=== PATIENT | female | born 1990 | race Caucasian/White ===

== ENCOUNTER 2020-10-15 10:37 | Emergency (ER) | payer OTHER, SELFPAY ==
[2020-10-15] VITALS (7 sets, daily range): BP systolic 105–121; BP diastolic 59–78; PULSE 52–74; RESP 16–18; TEMP 35.7–36.4; O2SAT 98–100; BMI 23.0
--- NOTE | ~2020-10-15 | CT_ITS ---
EXAMINATION: CT ABDOMEN AND PELVIS WITH CONTRAST CLINICAL INFORMATION: Abdominal pain COMPARISON: None TECHNIQUE: Multidetector volumetric images were obtained from the superior aspect of the liver through the pubic symphysis following administration 85 mL of Omnipaque 350 intravenous contrast. Sagittal and coronal reformatted images were obtained on the technologist's workstation. Oral contrast: No This CT examination was performed using dose optimization techniques as appropriate, variously including the following: *Automated exposure control *Adjustment of mA and/or kV according to patient size (this includes techniques or standardized protocols for targeted exams where dose is matched to indication/reason for exam; i.e. extremities or head) *Use of iterative reconstruction technique DLP: 435 mGy-cm FINDINGS: LUNG BASES: The visualized lung bases are unremarkable. No pleural or pericardial effusion. LIVER, GALLBLADDER, AND BILIARY TREE: There is mild hepatomegaly present with vertical span of 20 cm. No focal hepatic lesion or biliary ductal dilatation is present. The gallbladder is unremarkable with no evidence of radiopaque gallstones, gallbladder wall thickening, or obvious pericholecystic inflammatory changes. PANCREAS: Unremarkable. SPLEEN: Unremarkable. ADRENAL GLANDS: Unremarkable. KIDNEYS AND URETERS: The kidneys are normal in size, shape, and attenuation. No hydronephrosis, hydroureter, or calculi seen. No perinephric stranding. BLADDER: Unremarkable. GASTROINTESTINAL TRACT: No dilated loops of large or small bowel. No free air is identified. There is a small amount of free fluid seen within the pelvis. There appears to be some wall thickening with mild pericolonic inflammatory change about a section of the descending colon. No abscess collection is appreciated. The cecum lies low in the pelvis with the appendix, however the appendix appears unremarkable. ABDOMINAL WALL: No significant hernia is appreciated. LYMPH NODES: Normal. VASCULAR: Unremarkable. PELVIC VISCERA: There is some free fluid present. No abnormal mass is appreciated. No gas within the free fluid is noted. Multiple ovarian follicles are seen bilaterally. OSSEOUS STRUCTURES: Unremarkable. CT/CT abdomen pelvis w con IMPRESSION: Findings consistent with colitis of the descending colon. No abscess identified. Small amount of free fluid is seen.
--- NOTE | 2020-10-15 11:23 | ED.GIBLEED ---
HPI - GI Bleed General Chief complaint: GI Bleed Stated complaint: RECTAL BLEEDING Time Seen by Provider: 10/15/20 11:19 History of Present Illness HPI Narrative: 29-year-old female presents today with having bright red blood per rectum. Along with having diffuse abdominal pain. No history of abdominal surgery in the past. No history of alcohol use. No history of NSAID use. Patient denies any change in her diet. Definitely was rectal. There is no vaginal bleeding. Her last menstrual periods about a week ago. Timing and duration was normal. There is no pain on urination. Patient is from home. Slight dizziness diffuse abdominal cramping. No travel history. Patient is from home. Related Data Previous Rx's Medication Instructions Recorded ciprofloxacin HCl 500 mg tablet 500 mg PO BID 5 Days #10 tab 10/15/20 (Cipro) ondansetron 4 mg disintegrating 4 mg PO TID PRN 5 Days #10 tab 10/15/20 tablet Allergies Allergy/AdvReac Type Severity Reaction Status Date / Time No Known Allergies Allergy Verified 10/15/20 10:51 Review of Systems Review of Systems: Constitutional: No Weight loss, No Fever, No Chills, No Night Sweats, No Fatigue, No Malaise ENT/Mouth: No Hearing loss, No Ear Pain, No Nasal Congestion, No Sinus Pain, No Hoarseness, No sore throat, No Rhinorrhea, No Swallowing Difficulty Eyes: No Eye Pain, No Swelling, No Redness, No Foreign Body, No Discharge, No Vision Changes Cardiovascular: No Chest Pain, No SOB, No Dyspnea on Exertion, No Orthopnea, No Edema, No Palpitations Respiratory: No Cough, No Sputum, No Wheezing, No Smoke Exposure, No Dyspnea Gastrointestinal: Positive bloody stool positive nausea positive diffuse abdominal cramping Genitourinary: no irregular bleeding, No Dysuria, No Urinary Frequency, No Hematuria, No Urinary Incontinence, No Urgency, No Flank Pain, No Urinary Flow Changes, No Hesitancy Musculoskeletal: No joint pain, No Myalgias, No Joint Swelling Skin: No Skin Lesions, No rash Neuro: No Weakness, No Numbness, No Paresthesias, No Loss of Consciousness, No Dizziness, No Headache Psych: No Anxiety/Panic, No Depression, No SI/HI/AH/VH, No Social Issues, Heme/Lymph: No Bruising, No Bleeding,No Lymphadenopathy Endocrine: No Polyuria, No Polydipsia, No Temperature Intolerance [facility] Past Medical History Attestation statement: The following information was validated with the patient. Medical History (Updated 10/15/20 @ 15:24 by Oriana Ku MD) No active medical problems Social History Social History Advance Directives: Yes Advance Directives Information Provided: Yes Advance Directives on File: No Physical Exam Vital Signs: Vital Signs: Last Vital Signs Temp 96.2 F L 10/15/20 11:46 Pulse 52 10/15/20 14:21 Resp 16 10/15/20 14:21 BP 116/76 10/15/20 14:21 Pulse Ox 98 10/15/20 14:21 Body Mass Index 23.0 Appearance: Alert. Oriented X3. No acute distress. Eyes: Pupils equal, round and reactive to light. ENT: Pharynx normal. Neck: Normal inspection. Neck supple. No lymph nodes noted. No crepitus CVS: Normal heart rate and rhythm. Pulses normal. Normal S1 and S2 Respiratory: No respiratory distress. Breath sounds normal. No Wheezing. No rales Abdomen: Soft and nontender. No rigidity. No distention. good BS x4 Rectal exam done with tech Shirin present. Just mucus was noted. No blood noted. No external hemorrhoids noted. Skin: Skin warm and dry. Normal skin color. Normal skin turgor. Extremities: No lower extremity edema. Neurovascular intact to all extremities. No Lacerations. No Rash Neuro: Oriented X 3. No motor deficit. No sensory deficit. Moving all extermities. No slurred speech MDM - GI Bleed [facility] Narrative Medical decision making narrative: Well-appearing abdominal exam is soft nontender. Complaining of bright red blood per rectum. Will check patient's hemoglobin will get CT scan of the abdomen for colitis. Patient denies any history of alcohol use denies any history of NSAID use no history of travel. No significant past medical history except for anxiety. Patient's hemoglobin is 12. CT consistent with colitis. Hemoccult was actually negative. Patient well appearing no distress. Will discharge patient home. Close follow-up on an outpatient basis. Differential Diagnosis Differential diagnosis: Likely hemorrhoids, Lower gastrointestinal hemorrhage, hematochezia, melena and anal fissure Medical Records Attestation: I reviewed the patient's medical records. Lab Data Attestation: I reviewed the patient's lab results. Result diagrams: 10/15/20 11:32 10/15/20 11:32 Labs: Lab Results 10/15/20 10/15/20 10/15/20 Range/Units 11:32 11:32 12:56 WBC 14.9 H (4.8-10.8) X10*3/uL RBC 4.17 L (4.20-5.50) X10*6/uL Hgb 12.9 (12.0-16.0) g/dl Hct 38.8 (37-47) % MCV 93.0 (80-98) fL MCH 30.9 (27.0-33.0) pg MCHC 33.2 (31.0-35.0) g/dl RDW 12.9 (11.0-16.0) % Plt Count 353 (160-400) X10*3/uL MPV 9.8 (9.4-12.3) fL Immature Gran % (Auto) 0.3 (0.0-0.4) % Neut % (Auto) 76.2 H (45-73) % Lymph % (Auto) 16.1 L (20-40) % Jerome % (Auto) 5.1 (2-11) % Eos % (Auto) 1.9 (0-4) % Baso % (Auto) 0.4 (0-2) % Lymph # (Auto) 2.4 (1.2-4.9) X10*3/uL Jerome # (Auto) 0.8 (0.1-1.2) X10*3/uL Eos # (Auto) 0.3 (0.0-0.4) X10*3/uL Baso # (Auto) 0.1 (0.0-0.2) X10*3/uL Abs Immat Gran (auto) 0.05 H (0.00-0.03) X10*3/uL Absolute Neuts (auto) 11.3 H (2.0-8.3) X10*3/uL Absolute Nucleated RBC 0.000 (0.0-0.012) X10*3/uL Nucleated RBC % (auto) 0.0 (0.0-0.2) /100WBC Sodium 139 (135-145) mmol/L Potassium 4.3 (3.3-5.1) mmol/L Chloride 105 (96-108) mmol/L Carbon Dioxide 26 (22-29) mmol/L Anion Gap 12 (12-20) BUN 11 (9-16) mg/dL Creatinine 0.75 (0.5-1.4) mg/dL Estim Creat Clear Calc 92.3 Estimated GFR > 60 Random Glucose 96 (60-115) mg/dL Calcium 9.4 (8.4-10.2) mg/dL Total Bilirubin 0.3 (0.0-1.0) mg/dL Direct Bilirubin 0.2 (0.0-0.5) mg/dL AST 21 (5-31) U/L ALT 13 (0-31) U/L Alkaline Phosphatase 35 L (39-117) U/L Total Protein 7.0 (6.5-8.0) g/dL Albumin 4.3 (3.5-5.0) g/dL Lipase 19 (8-78) U/L Urine Color YELLOW Urine Appearance CLEAR Urine pH 7.0 (5.0-8.0) Ur Specific [place] 1.010 (1.005-1.025) Urine Protein NEG (NEG-TRACE) MG/DL Urine Glucose (UA) NEG (NEG) MG/DL Urine Ketones NEG (NEG) MG/DL Urine Blood NEG (NEG) Urine Nitrite NEG (NEG) Ur Leukocyte Esterase NEG (NEG) Urine RBC 0 (0) /HPF Urine WBC 0 (0-4) /HPF Ur Squamous Epith Cells 2+ /LPF Amorphous Sediment 1+ /LPF Urine Bacteria Not Reportable Urine Mucus 1+ /LPF Urine Test (NEGATIVE) Stool Occult Blood (NEGATIVE) 10/15/20 10/15/20 Range/Units 12:56 12:56 WBC (4.8-10.8) X10*3/uL RBC (4.20-5.50) X10*6/uL Hgb (12.0-16.0) g/dl Hct (37-47) % MCV (80-98) fL MCH (27.0-33.0) pg MCHC (31.0-35.0) g/dl RDW (11.0-16.0) % Plt Count (160-400) X10*3/uL MPV (9.4-12.3) fL Immature Gran % (Auto) (0.0-0.4) % Neut % (Auto) (45-73) % Lymph % (Auto) (20-40) % Jerome % (Auto) (2-11) % Eos % (Auto) (0-4) % Baso % (Auto) (0-2) % Lymph # (Auto) (1.2-4.9) X10*3/uL Jerome # (Auto) (0.1-1.2) X10*3/uL Eos # (Auto) (0.0-0.4) X10*3/uL Baso # (Auto) (0.0-0.2) X10*3/uL Abs Immat Gran (auto) (0.00-0.03) X10*3/uL Absolute Neuts (auto) (2.0-8.3) X10*3/uL Absolute Nucleated RBC (0.0-0.012) X10*3/uL Nucleated RBC % (auto) (0.0-0.2) /100WBC Sodium (135-145) mmol/L Potassium (3.3-5.1) mmol/L Chloride (96-108) mmol/L Carbon Dioxide (22-29) mmol/L Anion Gap (12-20) BUN (9-16) mg/dL Creatinine (0.5-1.4) mg/dL Estim Creat Clear Calc Estimated GFR Random Glucose (60-115) mg/dL Calcium (8.4-10.2) mg/dL Total Bilirubin (0.0-1.0) mg/dL Direct Bilirubin (0.0-0.5) mg/dL AST (5-31) U/L ALT (0-31) U/L Alkaline Phosphatase (39-117) U/L Total Protein (6.5-8.0) g/dL Albumin (3.5-5.0) g/dL Lipase (8-78) U/L Urine Color Urine Appearance Urine pH (5.0-8.0) Ur Specific [place] (1.005-1.025) Urine Protein (NEG-TRACE) MG/DL Urine Glucose (UA) (NEG) MG/DL Urine Ketones (NEG) MG/DL Urine Blood (NEG) Urine Nitrite (NEG) Ur Leukocyte Esterase (NEG) Urine RBC (0) /HPF Urine WBC (0-4) /HPF Ur Squamous Epith Cells /LPF Amorphous Sediment /LPF Urine Bacteria Urine Mucus /LPF Urine Test NEGATIVE (NEGATIVE) Stool Occult Blood NEGATIVE (NEGATIVE) Discharge Plan Discharge Clinical Impression: Colitis Patient Disposition: Home, Self-Care Instructions: Colitis (ED) Prescriptions: New ciprofloxacin HCl [Cipro] 500 mg tablet 500 mg PO BID 5 Days Qty: 10 RF: 0 ondansetron 4 mg tablet,disintegrating 4 mg PO TID PRN (Reason: nausea and vomiting) 5 Days Qty: 10 RF: 0 Referrals: Physician,None [Primary Care Provider] - 2 days (Lots of clear liquids. Close follow-up with her doctor on an outpatient basis.)
[2020-10-15] MEDS: 0.9 % Sodium Chloride 1,000 ML 999 ML IV (11:33)
[2020-10-15 11:40] LABS: MANUAL DIFF FLAG NO
[2020-10-15 11:41] LABS: Basophils Absolute Auto 0.1 X10*3/uL (0.0-0.2); Basophils Percent Auto 0.4 % (0-2); Eosinophils Absolute Auto 0.3 X10*3/uL (0.0-0.4); Eosinophils Percent Auto 1.9 % (0-4); Hematocrit 38.8 % (37-47); Hemoglobin 12.9 g/dl (12.0-16.0); Imm Gran Abs Auto 0.05 X10*3/uL (0.00-0.03); Imm Gran Pct Auto 0.3 % (0.0-0.4); Lymphocytes Absolute Auto 2.4 X10*3/uL (1.2-4.9); Lymphocytes Percent Auto 16.1 % (20-40); Mean Corpuscular HGB Conc 33.2 g/dl (31.0-35.0); Mean Corpuscular Hemoglobin 30.9 pg (27.0-33.0); Mean Platelet Volume 9.8 fL (9.4-12.3); Monocytes Absolute Auto 0.8 X10*3/uL (0.1-1.2); Monocytes Percent Auto 5.1 % (2-11); Neutrophils Absolute Auto 11.3 X10*3/uL (2.0-8.3); Neutrophils Percent Auto 76.2 % (45-73); Platelet Count 353 X10*3/uL (160-400); Red Blood Count 4.17 X10*6/uL (4.20-5.50); Red Cell Distribution Width 12.9 % (11.0-16.0); White Blood Count 14.9 X10*3/uL (4.8-10.8)
[2020-10-15 12:09] LABS: Alanine Aminotransferase 13 U/L (0-31); Albumin Level 4.3 g/dL (3.5-5.0); Alkaline Phosphatase 35 U/L (39-117); Anion Gap 12 (12-20); Aspartate Amino Transferase 21 U/L (5-31); Bilirubin Direct 0.2 mg/dL (0.0-0.5); Bilirubin Total 0.3 mg/dL (0.0-1.0); Blood Urea Nitrogen 11 mg/dL (9-16); Calcium 9.4 mg/dL (8.4-10.2); Carbon Dioxide 26 mmol/L (22-29); Chloride 105 mmol/L (96-108); Creatinine Clr Calc Pharmacy 92.3; Estimated Glomerular Filt Rate > 60; Glucose Random 96 mg/dL (60-115); Lipase 19 U/L (8-78); Potassium 4.3 mmol/L (3.3-5.1); Sodium 139 mmol/L (135-145)
[2020-10-15 13:24] LABS: OBS Int Ctl Valid YES; OBS1 NEGATIVE (NEGATIVE)
[2020-10-15 13:29] LABS: Glucose Urine UA NEG (NEG); Leukocyte Esterase Urine NEG (NEG); Nitrite Urine NEG (NEG); Urine Blood NEG (NEG); Urine Ketones NEG (NEG); Urine Protein NEG (NEG-TRACE)
[2020-10-15 13:38] LABS: Appearance Urine CLEAR; Color Urine YELLOW
[2020-10-15 13:39] LABS: WBC Urine 0 /HPF (0-4)
[2020-10-15 13:40] LABS: Amorphous Sediment Urine 1+ /LPF; Mucus Urine 1+ /LPF; RBC Urine 0 /HPF (0); Squamous Epithelial Cell Urine 2+ /LPF
[2020-10-15 13:41] LABS: UPreg QC Valid YES; Urine Pregnancy NEGATIVE (NEGATIVE)
[2020-10-15] MEDS: iohexoL 350 MG/ML 100 ML INFUS..BTL IV (14:28)
== END 2020-10-15 15:51 | disposition home or self-care (01) ==
PROVIDERS: Emergency Provider Emergency Medicine Emergency Medical Services
DX: K52.9 Noninfective gastroenteritis and colitis, unspecified (principal); R11.0 Nausea
CPT/HCPCS: 36415; 74177; 80048; 80076; 81001; 81025; 82272; 83690; 85025; 96360; 99284; Q9967

== ENCOUNTER 2024-05-21 14:53 | Outpatient (AMB) | payer BC, SELFPAY ==
--- NOTE | 2024-05-21 15:00 | MHC.PC.OV ---
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 ?? Prior PCP:? [facility] primary Last office visit/CPE:? . 1 yr Acute issue(s):? 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 Was on Methylphenidate and Concerta dir difficulty Concentrating - Notes Dx of ADHD ?? PMHx:? Anxiety & Depression, Dif concentrating. SurgHx:? Osteoma removal FHx:? Mom: Dad: Anxiety Sister: MS, Bipolar. Brother: ADHD. Dads Side: Skin CA mGM: side [place] SocHx:? Nonsmoker. EtOH 1-2 dr a week. MJ daily or qod. No other drugs. 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 1. Little interest or pleasure in doing things: several days 2. Feeling down, depressed, or hopeless: several days 3. Trouble falling or staying asleep, or sleeping too much: several days 4. Feeling tired or having little energy: nearly every day 5. Poor appetite or overeating: nearly every day 6. Feeling bad about yourself - or that you are a failure or have let yourself or your family down: several days 7. Trouble concentrating on things, such as reading the newspaper or watching television: nearly every day 8. Moving or speaking so slowly that other people could have noticed. Or the opposite - being so fidgety or restless that you have been moving around a lot more than usual: several days 9. Thoughts that you would be better off or of hurting yourself in some way: not at all Total score: 14 Depression Screening Interpretation: Positive Depression Screening Follow-up: In treatment and Community Mental Health Worker F/U Depression Screening Done: Yes 34802 - PHQ-9 Billing: Yes Source: Developed by Drs. Burak Atkins, Brea Mix, Shyam Rios and colleagues, with an educational angelique from [employer]. Thrive Questionnaire Date Thrive assessed: 05/21/24 I am a: Patient What is your living situation today?: I have a steady place to live Within the past 12 months, did the food you bought not last and you didn't have the money to get more?: I choose not to answer this question Within the past 12 months, did you worry whether your food would run out before you got money to buy more?: Never true Do you have trouble paying for medicines?: No Do you have trouble getting transportation to medical appointments?: No Do you have trouble paying your heating and electricity bill?: No Do you have trouble taking care of your child, family member or friend?: No Do you have trouble with day-to-day activities such as bathing, preparing meals, shopping, managing finances, etc.?: No Are you currently unemployed and looking for a job?: No Are you interested in more education?: Yes Please select the resources that you would like help with: None Currently or been in a relationship where the following occur: No concerns reported THRIVE Score: 0 AUDIT C Alcohol Use Questionnaire (AUDIT-C) 1. How often do you have a drink containing alcohol?: Monthly or less 2. How many drinks containing alcohol do you have on a typical day when you are drinking?: 1 or 2 3. How often do you have six or more drinks on one occasion?: Never Total Score: 1 Score Reviewed/Action Taken: Yes HELGA-7 AMB Questionnaire HELGA-7 Date HELGA - 7 assessed: 05/21/24 Feeling nervous, anxious, or on edge: 3 = Nearly every day Not being able to stop or control worryin = Nearly every day Worrying too much about different things: 3 = Nearly every day Trouble relaxin = Nearly every day Being so restless that it is hard to sit still: 3 = Nearly every day Becoming easily annoyed or irritable: 3 = Nearly every day Feeling afraid as if something awful might happen: 3 = Nearly every day Total HELGA-7 score (0-4 normal; 5-9 mild; 10-14 moderate; 15-21 severe): 21 Source: Developed by Drs. Burak Atkins, Brea Mix, Shyam Rios and colleagues, with an educational angelique from [employer]. HELGA-7 Assessment Billing HELGA-7 Assessment Tool: HELGA-7 Assessment 82845 Review of Systems Const Denies chills, Denies fatigue, Denies fever(s), Denies headache(s) and Denies weakness Eyes Denies change in vision ENT Denies dizziness and Denies headache(s) Card Denies dyspnea Resp Denies cough, Denies dyspnea, Denies wheezing and Denies other (shortness of breath) GI Denies abdominal pain, Denies melena, Denies hematochezia, Denies change in bowel habits, Denies dyspepsia and Denies nausea Denies hematuria and Denies dysuria Musc Denies numbness and Denies tingling Skin/Breast Denies rash, Denies unusual bruising and Denies wounds Neuro Denies dizziness, Denies headache(s), Denies numbness, Denies Sensory deficit (Neuro), Denies tingling and Denies weakness Psych Reports anxiety and Reports depression Endo Denies fatigue Aris/Lymph Denies easy bleeding and Denies easy bruising Aller/Immun Denies wheezing Physical exam (Primary Care) Vital Signs: Last Vital Signs Temp 97.9 F 05/21/24 15:14 Pulse 73 05/21/24 15:14 Resp 12 05/21/24 15:14 BP 104/70 05/21/24 15:14 Pulse Ox 100 05/21/24 15:14 BMI result Body Mass Index 25.2 Tobacco/Smoking Status: Tobacco use Status Tobacco use date assessed 05/21/24 05/21/24 15:14 Patient Tobacco Use Status Former Tobacco user 05/21/24 15:14 e-Cigarette/Vaping Use Never Used 05/21/24 15:14 PHQ-9: PHQ-9 Score PHQ-9: Total score 14 05/21/24 15:43 Depression Screening Interpretation: Positive Depression Screening Follow-up: In treatment and Community Mental Health Worker F/U Thrive Assessment: Date of Thrive Assessment Date Thrive assessed 05/21/24 05/21/24 15:01 Currently or been in a relationship where the following occur: No concerns reported Const General: well developed; No acute distress Nutritional Appearance: well nourished Orientation/consciousness: patient oriented x3 HENMT Head: Yes normocephalic and Yes atraumatic Ears: hearing grossly normal bilaterally and TM's normal bilaterally General nose exam: Normal external nose present and Normal nares present Eyes General: appearance normal, both eyes and all related structures Pupils: Equal, round and reactive pupils present EOM: EOMs intact bilaterally Chest Chest palpation & inspection: normal inspection of the chest Resp Effort & Inspection: normal respiratory effort Auscultation: clear to auscultation bilaterally Cardio Rate: regular rate Rhythm: regular rhythm Heart sounds: S1 normal heart sound present, S2 normal heart sound present, no gallops, no murmurs and no rubs Neuro General: patient oriented x3 and gait normal Cranial nerves: Yes Equal, round and reactive pupils present Cognition (Neuro): normal cognition Gait exam (Neuro): Normal gait present Motor exam (neuro): 5/5 motor strength present throughout Sensory Exam: No Sensory deficit (Neuro) Deep tendon reflexes (DTR's): Right patellar reflex intensity grade: 2+ and Left patellar reflex intensity grade: 2+ Extrem General: Yes normal to inspection and No edema Psych Appearance: grossly normal Affect: normal affect Attitude: cooperative Thought process: Normal thought process present Coding Level of Care Code New Pt Level 4 (66111) Diagnoses Depression with anxiety F41.8 Neoplasm of uncertain behavior of skin D48.5 Vision changes H53.9 ADHD F90.9 Laboratory exam ordered as part of routine general medical examination Z00.00 Family history of MS (multiple sclerosis) Z82.0 Additional Codes HELGA-7 Assessment Billing - HELGA-7 Assessment Tool: HELGA-7 Assessment 65940 ([id number]) PHQ-9 - 42152 - PHQ-9 Billing: Yes ([id number]) Assessment & Plan Assessment & Plan (1) Depression with anxiety: Code(s): F41.8 - Other specified anxiety disorders Category: Medical Plan: Currently?on?escitalopram?5?mg?tablets.??She?is?increasing?this?to?2?tablets?daily She?will?let?me?know?if?she?needs?a?refill Patient?would?like?a?referral?to?a therapist. 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 (4) ADHD: Code(s): F90.9 - Attention-deficit hyperactivity disorder, unspecified type Category: Medical Plan: Her?prior?PCPs?records?confirm?diagnosis?of?ADHD She?has?tried?Concerta/methylphenidate and?Ritalin?in?the?past. Will?try?Adderall?as?she?has?not?found?the?above?medications work?well. Medication?agreement?form?is?filled?out. (5) Laboratory exam ordered as part of routine general medical examination: Code(s): Z00.00 - Encounter for general adult medical examination without abnormal findings Category: Medical Plan: Check?labs (6) Family history of MS (multiple sclerosis): Code(s): Z82.0 - Family history of epilepsy and other diseases of the nervous system Category: Medical Plan: As?above?patient?has?a?sister?with?MS. Patient?notes?some?vision?changes?and?follow-up?with?mirror finishing machine operator. Her?neurologic exam?today?is?normal Orders: Orders Complete Blood Count Auto Diff Today Z00.00 - Encounter for general adult medical examination without abnormal findings Comprehensive [place]. Panel Fast Today Z00.00 - Encounter for general adult medical examination without abnormal findings Microalbumin, Random (w Creat) Today I10 - Essential (primary) hypertension TSH reflex Free T4 Today Z00.00 - Encounter for general adult medical examination without abnormal findings UA and rflx microscopic Today Z00.00 - Encounter for general adult medical examination without abnormal findings HIV Ab/Ag Today Z11.3 - Encounter for screening for infections with a predominantly sexual mode of transmission Hepatitis B,C Profile Today Z11.3 - Encounter for screening for infections with a predominantly sexual mode of transmission Syphilis Screen Today Z11.3 - Encounter for screening for infections with a predominantly sexual mode of transmission Lipid Panel Today Z00.00 - Encounter for general adult medical examination without abnormal findings Vitamin B12 and Folate Today E53.8 - Deficiency of other specified B group vitamins CT NG by PCR Today Z11.3 - Encounter for screening for infections with a predominantly sexual mode of transmission Referrals Nurse Navigator Referral F41.8 - Other specified anxiety disorders, F90.9 - Attention-deficit hyperactivity disorder, unspecified type Dermatology Referral D48.5 - Neoplasm of uncertain behavior of skin Medications: New dextroamphetamine-amphetamine 20 mg ER (Adderall XR) MassPat Verified. Partial Fill upon patient request. 20 mg PO QAM 30 days 30 caps 0RF hydroxyzine pamoate 25 - 50 mg (1 - 2 x 25 mg) PO DAILY 30 days PRN 60 caps 0RF anxiety Discontinued ondansetron Discontinued Reason: Patient Completed Course 4 mg PO TID 5 days PRN 10 tabs 0RF nausea and vomiting ciprofloxacin HCl (Cipro) Discontinued Reason: Patient Completed Course 500 mg PO BID 5 days 10 tabs 0RF
[2024-05-21 15:14] VITALS: BP 104/70; PULSE 73; RESP 12; TEMP 36.6; O2SAT 100; BMI 25.2
--- OUTSIDE RECORDS SUMMARY | 2024-05-21 17:45 | XMS_ITS | Clinical Summary ---
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 06/13/2023 Active hydrOXYzine pamoate (Vistaril) 25 MG capsule TAKE 1-2 CAPSULES BY MOUTH DAILY NEEDED 06/10/2023 Active escitalopram (Lexapro) 5 MG tablet Take 5 mg by mouth in the morning. 05/10/2023 Active Social History Tobacco Use Types Packs/Day Years Used Date Smoking Tobacco: Never Smokeless Tobacco: Never Tobacco Cessation:Counseling Given: Not Answered Alcohol Use Standard Drinks/Week Comments Yes 0 (1 standard drink = 0.6 oz pur e alcohol) socially Comments Unknown Sex and Gender Information Value Date Recorded Sex Assigned at Female 06/23/2023 10:02 AM EDT Legal Sex Female 8:34 AM EDT Gender Identity Female 06/21/2023 8:34 AM EDT Sexual Orientation Choose not to disclose 2023 10:02 AM EDT Last Filed Vital Signs Vital Sign Reading Time Taken Comments Blood Pressure 90/58 07/12/2023 8:16 AM EDT Pulse - - Temperature - - Respiratory Rate - - Oxygen Saturation - - Inhaled Oxygen Concentration - - Weight - - Height - - Body Mass Index - - Plan of Treatment Health Maintenance Due Date Last Done Comments Depression Screening 1991 HIV Screening 1991 SDOH Screening 1991 Hepatitis B Vaccines (2 of 3 - 3-dose series) 1991 1991 Alcohol/Substance Use Screening 2003 Family Planning (PISQ) 11/18/2006 Hepatitis C Screening 11/18/2009 Pap Smear 11/18/2012 Cervical Cancer Screening 11/18/2021 HPV/Cotest 11/18/2021 COVID-19 Vaccine (2 - season) 2023 04/22/2021 Influenza Vaccine (#1) 2023 9, 02/07/2019, 02/14/2018, Additional history exists Dental Oral Exam 01/12/2024 07/12/2023 Dental Prophylaxis 01/12/2024 07/12/2023 Tobacco Screening 07/11/2024 07/12/2023 Dental X-Ray: Bitewings 07/12/2024 07/12/2023, 06/22 Dental X-Ray: Full Mouth 07/12/2026 07/12/2023 DTaP/Tdap/Td Vaccines (2 - Td or Tdap) 12/31/2027 12/30/2017 Zoster Vaccines (1 of 2) 11/18/2041 RSV Patients and Patients Aged 60 years or older (1 - 1-dose 75+ series) 11/18/2066 HIB Vaccines Aged Out No longer eligi ble based on patient's age to complete this topic HPV Vaccines Aged Out No longer eligi ble based on patient's age to complete this topic Hepatitis A Vaccines Aged Out No long er eligible based on patient's age to complete this topic IPV Vaccines Aged Out No longer eligi ble based on patient's age to complete this topic Meningococcal Vaccine Aged Out No belem chato eligible based on patient's age to complete this topic Pneumococcal Vaccine: Pediatrics (0 to 5 Years) and At-Risk Patients (6 to 49) Years) Aged Out No longer eligible based on patient's age to complete this topic RSV under 20 months Aged Out No longe r eligible based on patient's age to complete this topic Rotavirus Vaccines Aged Out No longer eligible based on patient's age to complete this topic Procedures Procedure Name Priority Date/Time Associated Diagnosis Comments PROPHYLAXIS - ADULT Routine 07/12/2023 8 :00 AM EDT Dental caries INTRAORAL - COMPLETE SERIES OF RADIOGRAPHIC IMAGES Routine 07/12/2023 8:00 AM EDT Dental caries COMPREHENSIVE ORAL EVALUATION - NEW OR ESTABLISHED PATIENT Routine 07/12/2023 8:00 AM EDT Dental caries from Last 3 Months or Most Recently Relevant to Health Maintenance Insurance DENTAL - HSN PARTIAL (MEDICAID)
== END 2024-05-21 16:16 | disposition home or self-care (01) ==
PROVIDERS: PCP Family Medicine; Visit Provider Family Medicine
DX: F41.8 Other specified anxiety disorders (principal); D48.5 Neoplasm of uncertain behavior of skin; H53.9 Unspecified visual disturbance; F90.9 Attention-deficit hyperactivity disorder, unspecified type; Z00.00 Encounter for general adult medical examination without abnormal findings; Z82.0 Family history of epilepsy and other diseases of the nervous system

== ENCOUNTER → 2024-05-21 14:53 | Outpatient (BNVA) | payer BC, SELFPAY | PROVIDERS: PCP Family Medicine; Visit Provider Family Medicine | DX: F41.8 Other specified anxiety disorders (principal); D48.7 Neoplasm of uncertain behavior of other specified sites; H53.9 Unspecified visual disturbance; F90.9 Attention-deficit hyperactivity disorder, unspecified type; Z79.899 Other long term (current) drug therapy; Z82.0 Family history of epilepsy and other diseases of the nervous system | CPT/HCPCS: 96127 ==

== ENCOUNTER 2024-08-02 07:42 | Outpatient (REF) | payer BC, SELFPAY ==
--- OUTSIDE RECORDS SUMMARY | 2024-08-02 07:44 | XMS_ITS | Clinical Summary ---
Author Organization [employer] Address [address] [facility] [address] [place] [address] Care Team Providers Care Communication Signals Intelligence Name Role Phone Unavailable Primary Care Provider [...]
[2024-08-02 11:34] LABS: Appearance Urine Cloudy; Color Urine Yellow; Glucose Urine UA Negative (Negative); Leukocyte Esterase Urine Trace (Negative); Nitrite Urine Negative (Negative); Specific Gravity - Urine 1.025 (1.005-1.025); UMIC TRIGGER UA YES; Urine Blood Negative (Negative); Urine Ketones Negative (Negative); Urine Protein Negative (Neg-Trace)
[2024-08-02 11:41] LABS: Bacteria Urine 3+ (None Seen); Hyaline Casts Urine 0-2 /LPF (0-2); RBC Urine 0-2 /HPF (0-2); WBC Urine 0-5 /HPF (0-5)
[2024-08-02 11:46] LABS: MANUAL DIFF FLAG NO
[2024-08-02 11:49] LABS: Basophils Percent Auto 0.6 % (0-2); Eosinophils Absolute Auto 0.2 X10*3/uL (0.0-0.4); Eosinophils Percent Auto 2.7 % (0-4); Hematocrit 40.8 % (37.0-47.0); Hemoglobin 13.7 g/dl (12.0-16.0); Imm Gran Abs Auto 0.03 X10*3/uL (0.00-0.03); Imm Gran Pct Auto 0.4 % (0.0-0.4); Lymphocytes Absolute Auto 2.3 X10*3/uL (1.2-4.9); Lymphocytes Percent Auto 31.7 % (20-40); Mean Corpuscular HGB Conc 33.6 g/dl (31.0-35.0); Mean Corpuscular Hemoglobin 30.5 pg (27.0-33.0); Mean Corpuscular Volume 90.9 fL (80.0-98.0); Mean Platelet Volume 10.5 fL (9.4-12.3); Monocytes Absolute Auto 0.4 X10*3/uL (0.1-1.2); Monocytes Percent Auto 6.2 % (2-11); Neutrophils Absolute Auto 4.2 x10*3/uL (2.0-8.3); Neutrophils Percent Auto 58.4 % (45-73); Platelet Count 310 X10*3/uL (160-400); Red Blood Count 4.49 X10*6/uL (4.20-5.50); Red Cell Distribution Width 13.1 % (11.0-16.0); White Blood Count 7.2 X10*3/uL (4.8-10.8)
[2024-08-02 12:08] LABS: Creatinine Urine 135.32 mg/dL; Microalbum/Creatinine Ratio Ur 5.1 ug/mg cr (<30)
[2024-08-02 12:22] LABS: Syphilis Screen Nonreactive (Nonreactive)
[2024-08-02 12:23] LABS: Alanine Aminotransferase 17 U/L (0-31); Albumin Level 4.5 g/dL (3.5-5.0); Alkaline Phosphatase 32 U/L (39-117); Anion Gap 12 (12-20); Aspartate Amino Transferase 23 U/L (5-31); Bilirubin Total 0.4 mg/dL (0.0-1.0); Blood Urea Nitrogen 16 mg/dL (9-16); Calcium 9.2 mg/dL (8.4-10.2); Carbon Dioxide 25 mmol/L (22-29); Chloride 108 mmol/L (96-108); Cholesterol 164 mg/dL (<200); Estimated Glomerular Filt Rate > 60; Glucose Fasting 86 mg/dL (60-99); HDL Cholesterol 67 mg/dL (>40); LDL Cholesterol Calculated 90 mg/dL (<100); Potassium 4.1 mmol/L (3.3-5.1); Sodium 141 mmol/L (135-145); TSH reflex Free T4 1.57 uIU/mL (0.32-4.0); Total Protein 7.1 g/dL (6.5-8.0); Triglycerides 38 mg/dL (<150)
[2024-08-02 12:31] LABS: HBS Num1 0.27 mIU/mL (0-7.99); HBc Num1 0.11 S/CO (0.00-0.79); HIV AB/AG Nonreactive (Nonreactive); HIV Num 1 0.05 S/CO (0.00-0.99); Hepatitis B Core Antibody Nonreactive (Nonreactive); Hepatitis B Surface Antigen Negative (Negative); ~HepC Num1 0.09 S/CO (0.00-0.79); ~Hepatitis B Surface Antibody NONREACTIVE (Nonreactive); ~Hepatitis C Antibody Nonreactive (Nonreactive)
[2024-08-02 12:34] LABS: Folate 8.3 ng/mL (> or = 4.0); Vitamin B12 362 pg/mL (200-900)
[2024-08-02 13:01] LABS: CT PCR NOT DETECTED (Not Detect.); NG PCR NOT DETECTED (Not Detect.)
== END 2024-08-02 07:43 | disposition home or self-care (01) ==
LOC: HO.WFDLDS 07:42
PROVIDERS: Visit Provider Family Medicine
DX: Z00.00 Encounter for general adult medical examination without abnormal findings (principal); M25.562 Pain in left knee; F90.9 Attention-deficit hyperactivity disorder, unspecified type; F41.8 Other specified anxiety disorders; R82.71 Bacteriuria; Z79.899 Other long term (current) drug therapy; Z11.3 Encounter for screening for infections with a predominantly sexual mode of transmission; I10 Essential (primary) hypertension; E53.8 Deficiency of other specified B group vitamins; Z11.59 Encounter for screening for other viral diseases; Z72.89 Other problems related to lifestyle
CPT/HCPCS: 80053; 80061; 81001; 82043; 82570; 82607; 82746; 84443; 85025; 86704; 86706; 86780; 86803; 87340; 87389; 87491; 87591

== ENCOUNTER 2024-08-02 11:59 | Outpatient (AMB) | payer BC, SELFPAY ==
--- NOTE | 2024-08-02 12:03 | A.OFFPC_ITS ---
Vital Signs 08/02/24 12:05 Height 5 ft 3 in Weight 137 lb 8 oz BMI 24.4 BP 108/64 Blood Pressure Location Lt brachial Position Sitting Respiration 16 Pulse 72 Pulse Source Pulse Oximeter Temp 99.1 F Temp Source Oral Pulse Oximetry (%) 99 Oxygen Delivery Method Room Air Intake Visit Reasons: (Keep appt) CPE with f/u labs and health maint. Intake Note: patient is scheduled for follow-up labs and Health maint. patient is experiening lightheaded and dizzniness Allergies No Known Allergies Allergy (Verified 08/02/24 12:04) Medication List - Last Reconciled 08/02/24 by Caleb Boyer MD dextroamphetamine-amphetamine 20 mg ER (Adderall XR) 20 mg PO QAM 30 days escitalopram oxalate 5 mg PO DAILY hydroxyzine pamoate 25 - 50 mg (1 - 2 x 25 mg) PO DAILY PRN 30 days Tobacco use date assessed: 05/21/24 Dental Screening Dental Screen Date: 05/21/24 Did you have a dental visit in the last 12 months?: Yes Did you have a dental problem in the last 6 months where you did not have access to dental care?: No Was dental information given to patient?: No HPI (Keep appt) CPE with f/u labs and health maint. HPI Details 33 y/o female presents for a CPE with f/ u labs and health maintenance. Labs drawn 08/02/24. Reviewed labs with pt. Most values are still pending. 3+ urine bacteria seen. Denies any urina ry symptoms. She is on Adderall XR 20mg for ADHD. Denies any issues with her appetite. Notes some difficulty with sleeping. Notes increased anxiety but is unsure if this is due to her meds. She is on escitalopram, hydroxyzine for mood. Pt notes she has been feeling more lightheaded especially when she stands up. She reports L knee pain after she works out. HPI Comments History of Present Illness Details Documentation assistance for Caleb Boyer MD, was provided by Wood Perez,? Agriculture Extension Specialist on 08/02/2024 at 12:25 PM EST. I, Dr. Boyer, have read, observed, and verified documentation. 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 Current occupational exposures/hazards: No Cognitive needs: No Hearing needs: No Vision needs: Yes Questionnaire Thrive Questionnaire Date Thrive assessed: 08/02/24 I am a: Patient What is your living situation today?: I have a steady place to live Within the past 12 months, did the food you bought not last and you didn't have the money to get more?: I choose not to answer this question Within the past 12 months, did you worry whether your food would run out before you got money to buy more?: Never true Do you have trouble paying for medicines?: No Do you have trouble getting transportation to medical appointments?: No Do you have trouble paying your heating and electricity bill?: No Do you have trouble taking care of your child, family member or friend?: No Do you have trouble with day-to-day activities such as bathing, preparing meals, shopping, managing finances, etc.?: No Are you currently unemployed and looking for a job?: No Are you interested in more education?: Yes Please select the resources that you would like help with: None Currently or been in a relationship where the following occur: No concerns reported THRIVE Score: 0 HELGA-7 AMB Questionnaire HELGA-7 Date HELGA - 7 assessed: 05/21/24 Source: Developed by Drs. Burak Atkins, Brea Mix, Shyam Rios and colleagues, with an educational angelique from [employer]. Review of Systems Const Denies chills, Denies fatigue, Denies fever(s), Denies headache(s) and Denies weakness Eyes Denies change in vision ENT Denies dizziness, Denies headache(s), Denies hearing loss, Denies nasal congestion, Denies sinus pain, Denies sinus pressure and Denies sore throat Card Denies chest pain, Denies lightheadedness, Denies dyspnea and Denies other (palpitations) Resp Denies cough, Denies dyspnea and Denies wheezing GI Denies abdominal pain, Denies melena, Denies hematochezia, Denies change in bowel habits, Denies dyspepsia and Denies nausea Denies hematuria and Denies dysuria Musc Denies abnormal gait, Denies myalgias, Denies arthralgias, Denies numbness and Denies tingling Skin/Breast Denies rash, Denies unusual bruising and Denies wounds Neuro Denies abnormal gait, Denies dizziness, Denies headache(s), Denies memory loss, Denies numbness, Denies Sensory deficit (Neuro), Denies tingling and Denies weakness Psych Denies anxiety, Denies depression and Denies memory loss Endo Denies cold intolerance, Denies fatigue, Denies heat intolerance, Denies polydipsia and Denies polyuria Aris/Lymph Denies easy bleeding and Denies easy bruising Aller/Immun Denies wheezing Physical exam (Primary Care) Vital Signs: Last Vital Signs Temp 99.1 F 08/02/24 12:05 Pulse 72 08/02/24 12:05 Resp 16 08/02/24 12:05 BP 108/64 08/02/24 12:05 Pulse Ox 99 08/02/24 12:05 Oxygen Delivery Method Room Air 08/02/24 12:05 BMI result Body Mass Index 24.4 Tobacco/Smoking Status: Tobacco use Status Tobacco use date assessed 05/21/24 08/02/24 12:10 Patient Tobacco Use Status Former Tobacco user 08/02/24 12:10 e-Cigarette/Vaping Use Never Used 08/02/24 12:10 Thrive Assessment: Date of Thrive Assessment Date Thrive assessed 08/02/24 08/02/24 12:10 Currently or been in a relationship where the following occur: No concerns reported Const General: no acute distress, well developed, alert and awake Nutritional Appearance: well nourished Orientation/consciousness: patient oriented x3 HENMT Head: Yes normocephalic and Yes atraumatic Ears: hearing grossly normal bilaterally and TM's normal bilaterally General nose exam: Normal external nose present and Normal nares present Mouth: Normal oral and palatal mucosa present and moist mucous membranes Teeth and gingiva: dentition normal Throat: Yes posterior oropharynx normal Eyes General: appearance normal, both eyes and all related structures Pupils: Equal, round and reactive pupils present and Pupil accommodation reflex normal EOM: EOMs intact bilaterally Neck Neck: Yes normal visual inspection, Yes no lymphadenopathy and Yes trachea midline Thyroid: Thyroid normal Carotids: no bruits Lymphatic: no lymphadenopathy noted Chest Chest palpation & inspection: normal inspection of the chest Resp Effort & Inspection: normal respiratory effort Auscultation: clear to auscultation bilaterally Cardio Rate: regular rate Rhythm: regular rhythm Heart sounds: S1 normal heart sound present, S2 normal heart sound present, no gallops, no murmurs and no rubs Bruits: no abdominal aortic bruits and no carotid bruits GI Palpation (GI): No Abdominal aortic bruit present, Soft to palpation, nontender, No hepatosplenomegaly present and No Rebound tenderness present Auscultation: normal bowel sounds General: Yes no CVA tenderness Back/Spine/Pelvis Back: no CVA tenderness Cervical Spine: cervical ROM normal and No Cervical spine tenderness Thoracic/Lumbar Spine: thoraco-lumbar ROM normal, No pain with thoraco-lumbar ROM, No thoracic spinal tenderness and No lumbar spinal tenderness Skin Lesions: no lesions Rashes: no rashes Trauma: no lacerations or abrasions Wounds: no wounds Nails: normal Neuro General: patient oriented x3 Cranial nerves: Yes Equal, round and reactive pupils present Cognition (Neuro): normal cognition Gait exam (Neuro): Normal gait present Motor exam (neuro): 5/5 motor strength present throughout Sensory Exam: No Sensory deficit (Neuro) Deep tendon reflexes (DTR's): Right patellar reflex intensity grade: 2+ and Left patellar reflex intensity grade: 2+ Extrem General: Yes normal to inspection and No edema Psych Appearance: grossly normal Affect: normal affect Attitude: cooperative Thought process: Normal thought process present Coding Level of Care Code Est Pt Level 3 (69299) Est Pt Prev Care 18-39y(01117) Diagnoses Adult general medical examination Z00.00 Knee pain M25.569 ADHD F90.9 Depression with anxiety F41.8 Screening for cervical cancer Z12.4 Bacteria in urine R82.71 Assessment & Plan Assessment & Plan (1) Adult general medical examination: Code(s): Z00.00 - Encounter for general adult medical examination without abnormal findings Category: Medical Plan: 33-year-old?female?presents?for?complete?physical?exam Encouraged?healthy?diet?with?lifestyle?of?exercise (2) Knee pain: Code(s): M25.569 - Pain in unspecified knee Category: Medical Plan: Left?peripatellar?and?suprapatellar?knee?pain?after?exercise Likely?patellofemoral?syndrome NSAIDs?and?ice Physical?therapy Will?check?x-ray?to?rule?out?other?abnormalities If?not?improving?will?consider?referral (3) ADHD: Code(s): F90.9 - Attention-deficit hyperactivity disorder, unspecified type Category: Medical Plan: Patient?notes?some?difficulty?with?sleeping Will?decrease?Adderall?XR?20 down?to?Adderall?XR?10?and?add?fast?release?Adderall?at?around?1PM each?day No?significant?appetite?problems. She ?says?she?has?been?noticing?increased?anxiety?but?we?are?not?sure?if?this?is?due ?to?medication.??She?will?watch?changes?as?we?are?changing?her?regimen?today. (4) Depression with anxiety: Code(s): F41.8 - Other specified anxiety disorders Category: Medical Plan: Continue?hydroxyzine (5) Screening for cervical cancer: Code(s): Z12.4 - Encounter for screening for malignant neoplasm of cervix Category: Medical Plan: Followed?by?[facility]?gynecology Follow-up?as?recommended (6) Bacteria in urine: Code(s): R82.71 - Bacteriuria Category: Medical Plan: Asymptomatic Hydrate?well Orders: Orders XR knee LT 3V Today M25.569 - Pain in unspecified knee PT Evaluation and Treatment Today M25.569 - Pain in unspecified knee Medications: New dextroamphetamine-amphetamine 10 mg ER (Adderall XR) MassPat Verified. Partial Fill upon patient request. 10 mg PO QAM 30 days 30 caps 0RF dextroamphetamine-amphetamine 10 mg (Adderall) Take in Early Afternoon. [employer] Verified. Partial Fill upon patient request. 10 mg PO DAILY 30 days 30 tabs 0RF Discontinued dextroamphetamine-amphetamine 20 mg ER (Adderall XR) MassPat Verified. Partial Fill upon patient request. Discontinued Reason: Doctor's Order 20 mg PO QAM 30 days 30 caps 0RF
[2024-08-02 12:05] VITALS: BP 108/64; PULSE 72; RESP 16; TEMP 37.3; O2SAT 99; BMI 24.4
--- OUTSIDE RECORDS SUMMARY | 2024-08-02 13:00 | XMS_ITS | Clinical Summary ---
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
== END 2024-08-02 17:05 | disposition home or self-care (01) ==
LOC: HO.HMCFM 11:59
PROVIDERS: PCP Family Medicine; Visit Provider Family Medicine
DX: Z00.00 Encounter for general adult medical examination without abnormal findings (principal); M25.562 Pain in left knee; F90.9 Attention-deficit hyperactivity disorder, unspecified type; R82.71 Bacteriuria; F41.8 Other specified anxiety disorders

== ENCOUNTER 2024-10-26 09:32 | Outpatient (AMB) | payer BC, SELFPAY ==
--- NOTE | 2024-10-26 09:34 | MHC.PC.OV ---
Vital Signs 10/26/24 09:37 Height 5 ft 3 in Weight 136 lb 6 oz BMI 24.2 BP 100/60 Blood Pressure Location Lt brachial Position Sitting Respiration 12 Pulse 60 Pulse Source Pulse Oximeter Temp 95.9 F L Temp Source Temporal Artery Scan Pulse Oximetry (%) 100 Oxygen Delivery Method Room Air Intake Visit Reasons: med f/u Intake Note: Follow up on med start and dosage Shelter Supervisor Required: No Allergies No Known Allergies Allergy (Verified 10/26/24 09:35) Medication List - Last Reconciled 10/26/24 by Caleb Boyer MD dextroamphetamine-amphetamine 10 mg (Adderall) 10 mg PO DAILY 30 days dextroamphetamine-amphetamine 10 mg ER (Adderall XR) 10 mg PO QAM 30 days escitalopram oxalate 5 mg PO DAILY hydroxyzine pamoate 25 - 50 mg (1 - 2 x 25 mg) PO DAILY PRN 30 days Tobacco use date assessed: 10/26/24 Dental Screening Dental Screen Date: 10/26/24 Did you have a dental visit in the last 12 months?: Yes Did you have a dental problem in the last 6 months where you did not have access to dental care?: No Was dental information given to patient?: Patient has dentist HPI med f/u HPI Details 33 y/o female presents to f/u ADHD, mood. She is on Adderall. Still notices some difficulty with attention in the afternoon. Denies any issues with appetite. She feels she does not sleep well altogether. She is on escitalopram and she questions whether or not this works well for her. She had noted that after taking a holiday from it and restarting it she had started to report improved mood. HPI Comments History of Present Illness Details Documentation assistance for Caleb Boyer MD, was provided by Wood Perez,? Checkout Supervisor on 10/26/2024 at 9:51 AM EST. I, Dr. Boyer, have read, observed, and verified documentation. ? 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 Current occupational exposures/hazards: No Cognitive needs: No Hearing needs: No Vision needs: Yes Questionnaire Thrive Questionnaire Date Thrive assessed: 05/21/24 I am a: Patient What is your living situation today?: I have a steady place to live Within the past 12 months, did the food you bought not last and you didn't have the money to get more?: I choose not to answer this question Within the past 12 months, did you worry whether your food would run out before you got money to buy more?: Never true Do you have trouble paying for medicines?: No Do you have trouble getting transportation to medical appointments?: No Do you have trouble paying your heating and electricity bill?: No Do you have trouble taking care of your child, family member or friend?: No Do you have trouble with day-to-day activities such as bathing, preparing meals, shopping, managing finances, etc.?: No Are you currently unemployed and looking for a job?: No Are you interested in more education?: Yes Please select the resources that you would like help with: None Currently or been in a relationship where the following occur: No concerns reported THRIVE Score: 0 HELGA-7 AMB Questionnaire HELGA-7 Date HELGA - 7 assessed: 05/21/24 Source: Developed by Drs. Burak Atkins, Brea Mix, Shyam Rios and colleagues, with an educational angelique from [employer]. Review of Systems Const Denies chills, Denies fatigue, Denies fever(s), Denies headache(s) and Denies weakness ENT Denies dizziness and Denies headache(s) Card Denies dyspnea Resp Denies cough, Denies dyspnea, Denies wheezing and Denies other (shortness of breath) Musc Denies numbness and Denies tingling Neuro Denies dizziness, Denies headache(s), Denies numbness, Denies tingling and Denies weakness Psych Reports anxiety and Reports depression Endo Denies fatigue Aller/Immun Denies wheezing Physical exam (Primary Care) Vital Signs: Last Vital Signs Temp 95.9 F L 10/26/24 09:37 Pulse 60 10/26/24 09:37 Resp 12 10/26/24 09:37 BP 100/60 10/26/24 09:37 Pulse Ox 100 10/26/24 09:37 Oxygen Delivery Method Room Air 10/26/24 09:37 BMI result Body Mass Index 24.2 Tobacco/Smoking Status: Tobacco use Status Tobacco use date assessed 05/21/24 10/26/24 09:34 Patient Tobacco Use Status Former Tobacco user 10/26/24 09:34 e-Cigarette/Vaping Use Never Used 10/26/24 09:34 Thrive Assessment: Date of Thrive Assessment Date Thrive assessed 05/21/24 10/26/24 09:34 Currently or been in a relationship where the following occur: No concerns reported Const General: well developed; No acute distress Nutritional Appearance: well nourished Orientation/consciousness: patient oriented x3 HENMT Head: Yes normocephalic and Yes atraumatic Eyes General: appearance normal, both eyes and all related structures Pupils: Equal, round and reactive pupils present EOM: EOMs intact bilaterally Resp Effort & Inspection: normal respiratory effort Neuro General: patient oriented x3 and gait normal Cranial nerves: Yes Equal, round and reactive pupils present Psych Affect: normal affect Coding Level of Care Code Est Pt Level 4 (57379) Diagnoses ADHD F90.9 Depression with anxiety F41.8 Knee pain M25.569 Assessment & Plan Assessment & Plan (1) ADHD: Code(s): F90.9 - Attention-deficit hyperactivity disorder, unspecified type Category: Medical Plan: Patient is still noticing some difficulty with attention in her afternoon. Continue Adderall ER 10 mg daily in the morning and will increase her afternoon dose; Adderall instant release will increase X mg daily to 50 mg daily. She does not notice any worsening of her anxiety or depression due to the medication. No appetite changes and no with her sleep now. Will follow-up in a couple months (2) Depression with anxiety: Code(s): F41.8 - Other specified anxiety disorders Category: Medical Plan: Patient does notice some worsening of depression/anxiety She had stopped her escitalopram briefly as well and restarted this with some noticeable improvement She is taking 15 mg daily. Will increase this to 20 mg daily. (3) Knee pain: Code(s): M25.569 - Pain in unspecified knee Category: Medical Plan: Patient had complaints of knee pain Had ordered x-ray. She had not gone the x-ray done. She says that she has decreased her exercise and workouts. Knee pain has improved. She will let me know if this flares up again. Medications: New dextroamphetamine-amphetamine 15 mg (Adderall) Take in Early Afternoon. MassPat Verified. Partial Fill upon patient request. 15 mg PO DAILY 30 tabs 0RF 30 days Changed From escitalopram oxalate 5 mg PO DAILY To escitalopram oxalate 20 mg PO DAILY 90 tabs 3RF 90 days Refilled hydroxyzine pamoate 25 - 50 mg (1 - 2 x 25 mg) PO DAILY PRN 60 caps 0RF anxiety 30 days dextroamphetamine-amphetamine 10 mg ER (Adderall XR) [employer] Verified. Partial Fill upon patient request. 10 mg PO QAM 30 caps 0RF 30 days Discontinued dextroamphetamine-amphetamine 10 mg (Adderall) Take in Early Afternoon. MassPat Verified. Partial Fill upon patient request. Discontinued Reason: Doctor's Order 10 mg PO DAILY 30 days 30 tabs 0RF
--- OUTSIDE RECORDS SUMMARY | 2024-10-26 09:35 | XMS_ITS | Clinical Summary ---
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 Name Role Phone Unavailable Primary Care Provider [...] 1991 HIV Screening 1991 SDOH Screening 1991 Disability Screening 1991 Hepatitis B Vaccines (2 of 3 - 3-dose series) 1991 1991 Alcohol/Substance Use Screening 2003 Family Planning (PISQ) 11/18/2006 HPV Vaccines (1 - 3-dose series) 11/18/2006 Hepatitis C Screening 11/18/2009 Pap Smear 11/18/2012 Cervical Cancer Screening 11/18/2021 HPV/Cotest 11/18/2021 COVID-19 Vaccine (2 - season) 2023 04/22/2021 Dental Oral Exam 01/12/2024 07/12/2023 Dental Prophylaxis 01/12/2024 07/12/2023 Tobacco Screening 07/11/2024 07/12/2023 Dental X-Ray: Bitewings 07/12/2024 07/12/2023, 06/22 Influenza Vaccine (#1) 2024 9, 02/07/2019, 02/14/2018, Additional history exists Dental X-Ray: Full Mouth 07/12/2026 07/12/2023 DTaP/Tdap/Td [...] Years) and At-Risk Patients (6 to 49) Years Aged Out No longer eligible based on [...]
[2024-10-26 09:37] VITALS: BP 100/60; PULSE 60; RESP 12; TEMP 35.5; O2SAT 100; BMI 24.2
== END 2024-10-26 09:54 | disposition home or self-care (01) ==
LOC: HO.HMCFM 09:32
PROVIDERS: PCP Family Medicine; Visit Provider Family Medicine
DX: F90.9 Attention-deficit hyperactivity disorder, unspecified type (principal); F41.8 Other specified anxiety disorders; M25.569 Pain in unspecified knee

== ENCOUNTER 2024-12-24 17:50 | Emergency (ER) | payer BC, SELFPAY ==
--- NOTE | ~2024-12-24 | US_ITS ---
CLINICAL HISTORY: , ectopic?? vs threatened US OB 1st trimester transabdominal with Doppler Comparison: None provided Findings: Single intrauterine . CRL: 8.5 mm. EGA: 6 weeks, 4 days. MAHESH: August 15, 2025. Previously established gestational age: N/A. Normal yolk sac . Cardiac activity: 129 bpm. No subchorionic bleed. Right ovary 3.5 x 2.6 x 3.2 cm. Normal color Doppler with arterial/venous spectral tracing of both ovaries. IMPRESSION: 1. Single intrauterine estimated 6 weeks, 4 days gestational age by today's ultrasound criteria. 2. No evidence of ovarian torsion. This document has been electronically signed by: Woody Jo MD on 12/24/2024 22:05:27
--- NOTE | ~2024-12-24 | XR_ITS ---
CLINICAL HISTORY: chest pain, SOB --- Additional Notes or Special Instructions: 1 view chest x-ray Comparison: None provided Findings: No consolidation or effusion. Normal size heart. No acute fracture. IMPRESSION: 1. No acute findings. This document has been electronically signed by: Woody Jo MD on 12/24/2024 20:08:58
[2024-12-24 18:20] VITALS: BP 131/66; PULSE 75; RESP 16; TEMP 36.1; O2SAT 100; BMI 23.7
--- NOTE | 2024-12-24 18:24 | ECG_ITS ---
Test Reason : sob Blood Pressure : */* mmHG Vent. Rate : 67 BPM Atrial Rate : 67 BPM P-R Int : 142 ms QRS Dur : 84 ms QT Int : 386 ms P-R-T Axes : 83 -86 -5 degrees QTcB Int : 407 ms Normal sinus rhythm Left axis deviation Nonspecific T wave abnormality Abnormal ECG No previous ECGs available Referred By: Syed Goodman Electronically Signed By: ELINA QUIROZ MD
--- NOTE | 2024-12-24 18:26 | ED.GENADULT ---
HPI - General Adult General Chief complaint: General Medical Stated complaint: left ear and left arm numbness Time Seen by Provider: 12/24/24 20:12 Source: patient Limitations: no limitations History of Present Illness ED Provider: Evie Tilley PA-C HPI narrative: 34-year-old female with a history of anxiety, depression, ADHD presents with multiple complaints. Patient states she has been having intermittent left upper extremity numbness, shortness of breath and chest discomfort for 2 weeks. Patient performs a great deal repetitive activity at work, she also has a associated neck pain at times. Denies weakness of upper extremities. Associated left ear pressure also over the past 2 weeks. Denies pain, cough cold symptoms, seasonal allergies or fever Patient states she is approximately 7 weeks her last menstrual period was November 05 of this year, yesterday she began spotting. Today the bleeding has progressed, she is now passing clots, associated pelvic cramping. The bleeding is not continuous. Patient has yet to establish care, she has not had an outpatient obstetric ultrasound. Related Data Previous Rx's ?Medication ?Instructions ?Recorded escitalopram oxalate 20 mg tablet 20 mg PO DAILY 90 days #90 tabs 10/26/24 hydroxyzine pamoate 25 mg capsule 25 - 50 mg (1 - 2 x 25 mg) PO 10/26/24 DAILY PRN anxiety 30 days #60 caps dextroamphetamine-amphetamine 15 15 mg PO DAILY 30 days #30 tabs 11/30/24 mg tablet (Adderall) dextroamphetamine-amphetamine ER 10 mg PO QAM 30 days #30 caps 11/30/24 10 mg 24hr capsule,extend release (Adderall XR) vit no.95-ferrous 1 tab PO DAILY #30 tabs 12/24/24 fumarate 28 mg-folic acid 800 mcg tablet () Allergies Allergy/AdvReac Type Severity Reaction Status Date / Time No Known Allergies Allergy Verified 12/24/24 18:23 Review of Systems Review of Systems: Yes all other systems are reviewed and are negative Constitutional: Constitutional: Denies fatigue, Denies fever(s) and Denies headache(s) ENT: Denies dizziness and Denies headache(s) Cardiovascular: Cardiovascular: Reports chest pain and Denies palpitations Gastrointestinal: Gastrointestinal: Denies abdominal pain, Reports GI cramping, Denies diarrhea, Denies nausea and Denies vomiting Genitourinary: Genitourinary: Reports pelvic pain and Reports other (Vaginal bleeding) Neurologic: Denies dizziness and Denies headache(s) Endocrine: Endocrine: Denies fatigue and Denies palpitations [facility] Past Medical History Attestation statement: The following information was validated with the patient. Medical History (Updated 12/25/24 @ 00:00 by Jordi Jensen) Depression Anxiety No active medical problems Family History Family History (Updated 05/21/24 @ 15:08 by CARLOS Ornelas) Brother Substance abuse Sister Multiple sclerosis Other FH: mental illness Social History Social History (Updated 05/21/24 @ 15:14 by CARLOS Ornelas) Housing: House Patient Tobacco Use Status: Former Tobacco user e-Cigarette/Vaping Use: Never Used Second Hand Smoke Exposure: No Substance Use Type: Marijuana Advance Directives: No Advance Directives Information Provided: Yes service: No Current occupational status: employed 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 Current occupational exposures/hazards: No Cognitive needs: No Hearing needs: No Vision needs: Yes Physical Exam ED Vital Signs: Vital Signs - 24 hr 12/24/24 18:20 12/24/24 20:10 12/24/24 22:37 Temperature 96.9 F 98.7 F 98.1 F Pulse Rate 75 70 64 Respiratory Rate 16 18 18 Blood Pressure 131/66 108/57 L 117/65 Pulse Oximetry 100 100 100 Oxygen Delivery Method Room Air Room Air Room Air 12/24/24 22:42 Temperature 98.1 F Pulse Rate 64 Respiratory Rate 18 Blood Pressure 117/65 Pulse Oximetry 100 Oxygen Delivery Method Room Air BMI result Body Mass Index 23.7 Const Other: Alert well-appearing Orientation/consciousness: patient oriented x3 Resp Effort & Inspection: normal respiratory effort Cardio Other: Normal peripheral perfusion Other: Deferred not bleeding, and the patient declines, she states she wants to follow up with her acute care nursing assistant Skin Other: Warm dry no rash Neuro General: patient oriented x3, gait normal, no focal motor deficits and CN's II-XI intact bilaterally Psych Other: Cooperative Course Course Course Narrative: RME: 34 yold female who is presents to the ED for left arm numbness, chest pain, SOB, lower abdominal cramping, vaginal bleeding, and left ear pain. Vital signs stable. labs ordered. Medical Decision Making Medical Decision Making [facility] Narrative: 34-year-old female with a history of anxiety, depression, ADHD presents with multiple complaints. Patient states she has been having intermittent left upper extremity numbness, shortness of breath and chest discomfort for 2 weeks. Patient performs a great deal repetitive activity at work, she also has a associated neck pain at times. Denies weakness of upper extremities. Associated left ear pressure also over the past 2 weeks. Denies pain, cough cold symptoms, seasonal allergies or fever Patient states she is approximately 7 weeks her last menstrual period was November 05 of this year, yesterday she began spotting. Today the bleeding has progressed, she is now passing clots, associated pelvic cramping. The bleeding is not continuous. Patient has yet to establish care, she has not had an outpatient obstetric ultrasound. Problem: Anxiety depression ADHD History: Per patient I have considered the following differential diagnoses: Ectopic , threatened , subchorionic hemorrhage, menstrual cycle Plan: Screening labs including quant ordered from triage, an ultrasound was not ordered we will do so now. We also need Rh ABO, I am also trending the H&H. In regard to the chest discomfort, the patient has no risk factors for coronary artery disease, screening labs including cardiac enzymes EKG and chest x-ray were obtained as well, her heart score is 0. In reality her discomfort surrounds the left upper extremity, it sounds as if she is experiencing cervical radiculopathy, she has a mechanism to support it. I have independently reviewed the following tests: Labs: Slight leukocytosis, not anemic, no electrolyte abnormality, troponin less than 2.7, quant 7841 EKG: Normal sinus rhythm rate of 67, no ischemic changes no ectopy QTC 407, nonspecific T-wave abnormality, leftward axis Chest x-ray:Findings: No consolidation or effusion. Normal size heart. No acute fracture. IMPRESSION: 1. No acute findings. Transvaginal ultrasound: Findings: Single intrauterine . CRL: 8.5 mm. EGA: 6 weeks, 4 days. MAHESH: August 15, 2025. Previously established gestational age: N/A. Normal yolk sac . Cardiac activity: 129 bpm. No subchorionic bleed. Right ovary 3.5 x 2.6 x 3.2 cm. Normal color Doppler with arterial/venous spectral tracing of both ovaries. IMPRESSION: 1. Single intrauterine estimated 6 weeks, 4 days gestational age by today's ultrasound criteria. 2. No evidence of ovarian torsion. Differential Diagnosis Differential Diagnoses: The differential diagnosis associated with the presentation includes See medical decision-making Admission/Observation Consideration of admission/observation: Escalation of care including admission/observation considered Not applicable Lab Data MDM Lab Attestation statement: I reviewed the patient's lab results. 12/24/24 20:44 12/24/24 18:53 Labs: Lab Results 12/24/24 12/24/24 12/24/24 Range/Units 18:53 18:54 20:44 WBC 13.1 H (4.8-10.8) X10*3/uL RBC 4.08 L (4.20-5.50) X10*6/uL Hgb 12.6 13.0 (12.0-16.0) g/dl Hct 36.2 L 37.4 (37.0-47.0) % MCV 88.7 (80.0-98.0) fL MCH 30.9 (27.0-33.0) pg MCHC 34.8 (31.0-35.0) g/dl RDW 12.7 (11.0-16.0) % Plt Count 320 (160-400) X10*3/uL MPV 9.8 (9.4-12.3) fL Immature Gran % (Auto) 0.4 (0.0-0.4) % Neut % (Auto) 63.5 (45-73) % Lymph % (Auto) 26.7 (20-40) % [place] % (Auto) 6.8 (2-11) % Eos % (Auto) 2.1 (0-4) % Baso % (Auto) 0.5 (0-2) % Lymph # (Auto) 3.5 (1.2-4.9) X10*3/uL [place] # (Auto) 0.9 (0.1-1.2) X10*3/uL Eos # (Auto) 0.3 (0.0-0.4) X10*3/uL Baso # (Auto) 0.1 (0.0-0.2) X10*3/uL Abs Immat Gran (auto) 0.05 H (0.00-0.03) X10*3/uL Absolute Neuts (auto) 8.3 (2.0-8.3) x10*3/uL Absolute Nucleated RBC 0.000 (0.0-0.012) X10*3/uL Nucleated RBC % (auto) 0.0 (0.0-0.2) /100WBC Sodium 137 (135-145) mmol/L Potassium 3.7 (3.3-5.1) mmol/L Chloride 108 (96-108) mmol/L Carbon Dioxide 22 (22-29) mmol/L Anion Gap 11 L (12-20) BUN 11 (9-16) mg/dL Creatinine 0.60 (0.5-1.4) mg/dL Estim Creat Clear Calc 110.2 Estimated GFR > 60 Random Glucose 83 (60-115) mg/dL Calcium 9.2 (8.4-10.2) mg/dL Total Bilirubin 0.4 (0.0-1.0) mg/dL AST 19 (5-31) U/L ALT 18 (0-31) U/L Alkaline Phosphatase 29 L (39-117) U/L Troponin I High Sens < 2.7 (<3.5-17.0) ng/L Total Protein 7.1 (6.5-8.0) g/dL Albumin 4.7 (3.5-5.0) g/dL Beta HCG, Quant 7841 mIU/mL COVID-19 (DARON) Negative (Negative) COVID-19 Clin Com See Note Influenza Type A (SILVESTRE) Negative (Negative) Influenza Type B (SILVESTRE) Negative (Negative) Influenza A & B Note See Note Blood Type A Negative Independent Interpretation I performed an independent interpretation of an: EKG Radiology Impression Discussion of test interpretation with radiology: I have reviewed the radiologist's reading. Discharge Plan Discharge Clinical Impression: and not yet delivered in first trimester, Chest discomfort Patient Disposition: Home, Self-Care Instructions: (ED), Noncardiac Chest Pain (ED) Additional Instructions: You were found to be approximately 6 weeks 4 days. Some women do experience vaginal bleeding early on in the . I would initiate care REE, if you choose to continue with the . I am sending vitamins to your pharmacy. Return precautions for the onset of heavy vaginal bleeding, having to change a pad every 30 minutes to an hour, severe abdominal pain, fever. If you develop any of these symptoms, seek medical attention. In regard to the chest discomfort, this is not cardiac in nature. Screening labs including a cardiac enzymes were obtained and the labs were normal. There were no concerning changes on the EKG and your chest x-ray is clear. The discomfort in your left upper extremity and tingling sensation, it is likely secondary to inflammation of the nerve roots originating from your cervical spine. The only medication for pain that is safe in is Tylenol, 1000 mg taken every 8 hours. Some people eventually require physical therapy, this is something that your primary care provider can expedite for you. Follow up with your primary care provider as needed. Prescriptions: New PNV no.95-ferrous fumarate-FA [] 28 mg iron- 800 mcg tablet 1 tab PO DAILY Qty: 30 0RF No Action dextroamphetamine-amphetamine [Adderall XR] 10 mg capsule,extended release 24hr 10 mg PO QAM 30 Days Qty: 30 0RF Rx Instructions: MassPat Verified. Partial Fill upon patient request. dextroamphetamine-amphetamine [Adderall] 15 mg tablet 15 mg PO DAILY 30 Days Qty: 30 0RF Rx Instructions: Take in Early Afternoon. MassPat Verified. Partial Fill upon patient request. hydroxyzine pamoate 25 mg capsule 25 - 50 mg PO DAILY PRN (Reason: anxiety) 30 Days Qty: 60 0RF escitalopram oxalate 20 mg tablet 20 mg PO DAILY 90 Days Qty: 90 3RF Stand Alone Forms: Work/School Release Interventions: ED Discharge Assessment Last Done: 12/24/24 22:42 Discharge Date/Time: 12/24/24 22:42 Print Language: Arabic
--- NOTE | 2024-12-24 18:54 | MHC.EDTECH ---
ekg delay due ekg machine being used nurse aware
[2024-12-24 19:08] LABS: MANUAL DIFF FLAG NO
[2024-12-24 19:10] LABS: Hematocrit 36.2 % (37.0-47.0); Hemoglobin 12.6 g/dl (12.0-16.0); Imm Gran Abs Auto 0.05 X10*3/uL (0.00-0.03); Imm Gran Pct Auto 0.4 % (0.0-0.4); Lymphocytes Absolute Auto 3.5 X10*3/uL (1.2-4.9); Mean Corpuscular HGB Conc 34.8 g/dl (31.0-35.0); Mean Corpuscular Hemoglobin 30.9 pg (27.0-33.0); Mean Corpuscular Volume 88.7 fL (80.0-98.0); NRBC Abs Auto 0.000 X10*3/uL (0.0-0.012); NRBC Pct Auto 0.0 /100WBC (0.0-0.2); Platelet Count 320 X10*3/uL (160-400); Red Blood Count 4.08 X10*6/uL (4.20-5.50); White Blood Count 13.1 X10*3/uL (4.8-10.8)
[2024-12-24 19:23] LABS: COVID-19 Test Negative (Negative); IDNOW Serial# 55D5AD1C
[2024-12-24 19:25] LABS: IDNOW Serial# 58CA691E; Influenza B2 Negative (Negative)
[2024-12-24 19:43] LABS: Alanine Aminotransferase 18 U/L (0-31); Albumin Level 4.7 g/dL (3.5-5.0); Alkaline Phosphatase 29 U/L (39-117); Anion Gap 11 (12-20); Aspartate Amino Transferase 19 U/L (5-31); Blood Urea Nitrogen 11 mg/dL (9-16); Calcium 9.2 mg/dL (8.4-10.2); Carbon Dioxide 22 mmol/L (22-29); Chloride 108 mmol/L (96-108); Creatinine Clr Calc Pharmacy 110.2; Estimated Glomerular Filt Rate > 60; Potassium 3.7 mmol/L (3.3-5.1); Sodium 137 mmol/L (135-145); Total Protein 7.1 g/dL (6.5-8.0)
[2024-12-24 19:45] LABS: Troponin-I High Sensitivity < 2.7 ng/L (<3.5-17.0)
[2024-12-24 20:10] VITALS: BP 108/57; PULSE 70; RESP 18; TEMP 37.1; O2SAT 100
--- OUTSIDE RECORDS SUMMARY | 2024-12-24 20:16 | XMS_ITS | Clinical Summary ---
Author Organization [employer] Address [address] [place] [address] Care Team Providers Care Diabetes Territory Manager Name Role Phone Unavailable Primary Care Provider [...] 11/18/2012 Cervical Cancer Screening 11/18/2021 HPV/Cotest 11/18/2021 Dental Oral Exam 01/12/2024 07/12/2023 Dental Prophylaxis 01/12/2024 07/12/2023 Tobacco Screening 07/11/2024 07/12/2023 Dental X-Ray: Bitewings 07/12/2024 07/12/2023, 06/22 COVID-19 Vaccine (2 - 2024- season) 2024 04/22/2021 Influenza Vaccine (#1) 2024 9, 02/07/2019, 02/14/2018, [...]
[2024-12-24 20:50] LABS: Hematocrit 37.4 % (37.0-47.0); Hemoglobin 13.0 g/dl (12.0-16.0)
--- NOTE | 2024-12-24 22:13 | PC.NURSE ---
pt reporting she is feeling better, denies pain. US results pending. pt would like to leave to care for children at home. provider made aware., at bedside to speak with pt.
[2024-12-24 22:37] VITALS: BP 117/65; PULSE 64; RESP 18; TEMP 36.7; O2SAT 100
[2024-12-24 22:42] VITALS: BP 117/65; PULSE 64; RESP 18; TEMP 36.7; O2SAT 100
== END 2024-12-24 22:42 | disposition home or self-care (01) ==
PROVIDERS: Physician Assistant; Physician Assistant Medical; Emergency Provider Emergency Medicine; PCP Family Medicine
DX: O20.9 Hemorrhage in early pregnancy, unspecified (principal); R06.02 Shortness of breath; R07.9 Chest pain, unspecified; M79.602 Pain in left arm; R20.0 Anesthesia of skin; Z03.818 Encounter for observation for suspected exposure to other biological agents ruled out
CPT/HCPCS: 36415; 71045; 76801; 80053; 84484; 84702; 85014; 85018; 85025; 86900; 86901; 87502; 87635; 93005; 99284

== ENCOUNTER → 2024-12-24 18:24 | Outpatient (BNV) | payer BC, SELFPAY | PROVIDERS: Emergency Provider Emergency Medicine; PCP Family Medicine; Visit Provider Radiology Diagnostic Radiology | DX: R07.9 Chest pain, unspecified (principal) | CPT/HCPCS: 71045; 76801 ==

== ENCOUNTER → 2024-12-24 18:24 | Outpatient (BNV) | payer BC, SELFPAY | PROVIDERS: Emergency Provider Emergency Medicine; PCP Family Medicine; Visit Provider Internal Medicine Cardiovascular Disease | DX: R94.31 Abnormal electrocardiogram [ECG] [EKG] (principal); R06.02 Shortness of breath | CPT/HCPCS: 93010 ==

== ENCOUNTER 2025-01-01 08:43 | Outpatient (AMB) | payer BC, SELFPAY ==
--- NOTE | 2025-01-01 08:47 | A.OFFPC_ITS ---
Vital Signs 01/01/25 08:50 Height 5 ft 3 in Weight 140 lb 4 oz BMI 24.8 BP 102/64 Blood Pressure Location Rt brachial Position Sitting Respiration 16 Pulse 69 Pulse Source Pulse Oximeter Temp 97.6 F Temp Source Temporal Artery Scan Pulse Oximetry (%) 99 Oxygen Delivery Method Room Air Intake Visit Reasons: f/u ADHD Intake Note: Jennifer presents in the office today for ADHD. Patient would like to have her left ear looked at. Patient also was seen [place] [facility] Last Sunday 12/24 for left arm numbness and SOB. Patient had had her period for 6 weeks. Patient recently has miscarrage. Allergies No Known Allergies Allergy (Verified 01/01/25 08:49) Tobacco use date assessed: 01/01/25 Dental Screening Dental Screen Date: 01/01/25 Did you have a dental visit in the last 12 months?: Yes Did you have a dental problem in the last 6 months where you did not have access to dental care?: No Was dental information given to patient?: Patient has dentist HPI f/u ADHD HPI Details 34 y/o female presents to f/u ADHD. Recent ED visit 12/24/24 for multiple complaints such as shortness of breath, chest discomfort. Also presented for spotting. Cardiac work up was unrevealing. She was also found to be approximately 6 weeks 4 days. Continues to take Adderall. Denies any issues with appetite, increased anxiety. She is unsure if it is affecting her sleep as she notes insomnia all of October. She notes she is unsure if her medications for her mood has been working well. Pt reports hearing changes and L ear discomfort - she notes that sometimes sound gets very muffled HPI Comments History of Present Illness Details Documentation assistance for Caleb Boyer MD, was provided by Wood Perez,? Fire Crew Worker on 01/01/2025 at 9:05 AM EST. I, Dr. Boyer, have read, observed, and verified documentation. 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 Current occupational exposures/hazards: No Cognitive needs: No Hearing needs: No Vision needs: Yes Questionnaire Thrive Questionnaire Date Thrive assessed: 05/21/24 I am a: Patient What is your living situation today?: I have a steady place to live Within the past 12 months, did the food you bought not last and you didn't have the money to get more?: I choose not to answer this question Within the past 12 months, did you worry whether your food would run out before you got money to buy more?: Never true Do you have trouble paying for medicines?: No Do you have trouble getting transportation to medical appointments?: No Do you have trouble paying your heating and electricity bill?: No Do you have trouble taking care of your child, family member or friend?: No Do you have trouble with day-to-day activities such as bathing, preparing meals, shopping, managing finances, etc.?: No Are you currently unemployed and looking for a job?: No Are you interested in more education?: Yes Please select the resources that you would like help with: None Currently or been in a relationship where the following occur: No concerns reported THRIVE Score: 0 HELGA-7 AMB Questionnaire HELGA-7 Date HELGA - 7 assessed: 05/21/24 Source: Developed by Drs. Burak Atkins, Brea Mix, Shyam Rios and colleagues, with an educational angelique from [employer]. Review of Systems Const Denies chills, Denies fatigue, Denies fever(s), Denies headache(s) and Denies weakness ENT Denies dizziness and Denies headache(s) Card Denies dyspnea Resp Denies cough, Denies dyspnea, Denies wheezing and Denies other (shortness of breath) Musc Denies numbness and Denies tingling Neuro Denies dizziness, Denies headache(s), Denies numbness, Denies tingling and Denies weakness Psych Denies anxiety and Denies depression Endo Denies fatigue Aller/Immun Denies wheezing Physical exam (Primary Care) Vital Signs: Last Vital Signs Temp 97.6 F 01/01/25 08:50 Pulse 69 01/01/25 08:50 Resp 16 01/01/25 08:50 BP 102/64 01/01/25 08:50 Pulse Ox 99 01/01/25 08:50 Oxygen Delivery Method Room Air 01/01/25 08:50 BMI result Body Mass Index 24.8 Tobacco/Smoking Status: Tobacco use Status Tobacco use date assessed 01/01/25 01/01/25 08:56 Patient Tobacco Use Status Former Tobacco user 01/01/25 08:50 e-Cigarette/Vaping Use Never Used 01/01/25 08:50 Thrive Assessment: Date of Thrive Assessment Date Thrive assessed 05/21/24 01/01/25 08:48 Currently or been in a relationship where the following occur: No concerns reported Const General: well developed; No acute distress Nutritional Appearance: well nourished Orientation/consciousness: patient oriented x3 HENMT Head: Yes normocephalic and Yes atraumatic Eyes General: appearance normal, both eyes and all related structures Pupils: Equal, round and reactive pupils present EOM: EOMs intact bilaterally Resp Effort & Inspection: normal respiratory effort Neuro General: patient oriented x3 and gait normal Cranial nerves: Yes Equal, round and reactive pupils present Psych Affect: normal affect Coding Level of Care Code Est Pt Level 4 (30119) Diagnoses Depression with anxiety F41.8 ADHD F90.9 Insomnia G47.00 Vaginal spotting N93.9 Discomfort of left ear H92.02 Assessment & Plan Assessment & Plan (1) Depression with anxiety: Code(s): F41.8 - Other specified anxiety disorders Category: Medical Plan: Patient notes anxiety and depression have worsened somewhat. Appears stable Had resumed escitalopram and hydroxyzine. She says this is helping keep her on somewhat of an even keel but she notes that she has not had the same kind of ?Pap in her step Also worsening issues with sleep Will refer her to [facility] [place] team (2) ADHD: Code(s): F90.9 - Attention-deficit hyperactivity disorder, unspecified type Category: Medical Plan: Take med as prescribed and it is helping with focus but as above she has been having some issues with sleep Will have her followed by [facility] [place] team to help evaluate and adjust medication (3) Insomnia: Code(s): G47.00 - Insomnia, unspecified Category: Medical Plan: as above (4) Vaginal spotting: Code(s): N93.9 - Abnormal uterine and vaginal bleeding, unspecified Category: Medical Plan: Patient had vaginal spotting and [facility]riage[facility] (5) Discomfort of left ear: Code(s): H92.02 - Otalgia, left ear Category: Medical Plan: Discomfort at left ear with frequent sensation of muffled sound with blocking of year. No wax or erythema or fluid behind the ear Likely eustachian tube dysfunction and swelling Will give her a short course of prednisone and nasal steroid Referred to ENT Orders: Orders Lipid Panel Today Z00.00 - Encounter for general adult medical examination without abnormal findings TSH reflex Free T4 Today Z00.00 - Encounter for general adult medical examination without abnormal findings UA CC w/rflx Micro + Cult Today Z00.00 - Encounter for general adult medical examination without abnormal findings Comprehensive Gateway. Panel Fast Today Z00.00 - Encounter for general adult medical examination without abnormal findings Complete Blood Count Auto Diff Today Z00.00 - Encounter for general adult medical examination without abnormal findings Microalbumin, Random (w Creat) Today I10 - Essential (primary) hypertension Referrals Ear/Nose/Throat Referral H92.02 - Otalgia, left ear Medications: New prednisone 40 mg (2 x 20 mg) PO DAILY 6 tabs 0RF 3 days fluticasone propionate 50 mcg/actuation (Flonase Allergy Relief) administer into each nostril 1 spray intranasal Q12H 16 grams 2RF 30 days
[2025-01-01 08:50] VITALS: BP 102/64; PULSE 69; RESP 16; TEMP 36.4; O2SAT 99; BMI 24.8
--- OUTSIDE RECORDS SUMMARY | 2025-01-01 09:14 | XMS_ITS | Clinical Summary ---
Author Organization [employer] Address [address] [place] [address] Care Team Providers Care Brass Burnisher Name Role Phone Unavailable Primary Care Provider [...]
== END 2025-01-01 09:20 | disposition home or self-care (01) ==
LOC: HO.HMCFM 08:44
PROVIDERS: PCP Family Medicine; Visit Provider Family Medicine
DX: F41.8 Other specified anxiety disorders (principal); F90.9 Attention-deficit hyperactivity disorder, unspecified type; G47.00 Insomnia, unspecified; N93.9 Abnormal uterine and vaginal bleeding, unspecified; H92.02 Otalgia, left ear